=== PATIENT | female | born 1965 | race African-American/Black ===

== ENCOUNTER 2020-10-20 12:27 | Observation (INO) ==
[2020-10-20] MEDS ORDERED: Ondansetron 4 MG/2 ML VIAL IVP PRN (15:55)
[2020-10-20] MEDS ORDERED: Naloxone 0.4 MG/ML INJ IVP PRN (15:55)
[2020-10-20] MEDS ORDERED: *HR* HYDROcodone/Acet 5/325 mg TABLET PO PRN (15:55)
[2020-10-20] MEDS ORDERED: Melatonin 3 MG TABLET PO PRN (15:55)
[2020-10-20] MEDS ORDERED: Acetaminophen 325 MG TABLET PO PRN (15:55)
[2020-10-20] MEDS ORDERED: Perflutren Lipid Microsphere 1.3 ML in 0.9 % Sodium Chloride 8.7 ML IVP PRN (16:00)
[2020-10-20] MEDS ORDERED: Gadolinium Contrast Agent (WT Based) IV PRN (16:00)
[2020-10-20] MEDS ORDERED: Ringers Solution, Lactated 1,000 ML IVC SCH (16:00)
[2020-10-20 16:56] LABS: Chol/HDL Ratio 3.7 (0-4.9)
[2020-10-20 17:23] LABS: Folate 22.1 ng/mL (3.0-16.0)
[2020-10-20] MEDS: Aspirin Enteric Coated 81 MG Tablet PO SCH (17:27)
[2020-10-20 18:21] LABS: Acetaminophen < 10 mcg/mL (10-20); Magnesium 1.8 mg/dL (1.6-2.6); Phosphorous 2.8 mg/dL (2.7-4.5); Salicylate < 2.5 mg/dL (15.0-30.0)
[2020-10-20 19:07] LABS: Follicle Stimulating Hormone 78.08 mIU/mL
[2020-10-20 19:08] LABS: Luteinizing Hormone 46.23 mIU/mL
[2020-10-21 05:36] LABS: Basophils % 0.8 %; Eosinophils # 0.1 K/mcL (0.0-0.6); Hematocrit 38.4 % (35.3-44.9); Hemoglobin 13.5 g/dL (11.5-15.4); Lymphocytes # 2.3 K/mcL (0.6-4.6); Lymphocytes % 58.9 %; Mean Corpuscular HGB Conc 35.2 g/dL (31.6-35.5); Mean Corpuscular Volume 88.1 fL (83.0-100.0); Mean Platelet Volume 9.8 fL (9.4-12.4); Monocytes # 0.3 K/mcL (0.0-1.3); Monocytes % 7.7 %; Neutrophils # 1.2 K/mcL (1.6-8.9); Platelet Count 240 K/mcL (140-400); Red Blood Count 4.36 M/mcL (3.82-4.97); Red Cell Distribution Width 13.3 % (11.5-14.5); Segmented Neutrophils % 30.6 %; White Blood Count 3.9 K/mcL (4.3-11.1)
[2020-10-21 05:56] LABS: INR 1.1; Prothrombin Time 13.2 Seconds (9.4-12.1)
[2020-10-21 06:01] LABS: Alanine Aminotransferase 13 Units/L (7-52); Albumin 3.6 g/dL (3.5-5.7); Albumin/Globulin Ratio 0.9 (1.1-2.2); Alkaline Phosphatase 61 Units/L (34-104); Aspartate Amino Transferase 18 Units/L (13-39); BUN/Creatinine Ratio 25 (6-26); Bilirubin,Total 0.7 mg/dL (0.3-1.0); Blood Urea Nitrogen 21 mg/dL (6-20); Calcium 9.3 mg/dL (8.6-10.3); Carbon Dioxide 25 mEq/L (23-29); Chloride 105 mEq/L (98-107); Glucose 89 mg/dL (70-105); Magnesium 1.8 mg/dL (1.6-2.6); Osmolality,Calculated 286 (280-300); Phosphorous 3.5 mg/dL (2.7-4.5); Potassium 3.8 mEq/L (3.5-5.1); Sodium 137 mEq/L (136-145); Total Protein 7.6 g/dL (6.4-8.9); Troponin I < 0.03 ng/mL (< 0.04); eGFR For African Americans > 60 (> 60); eGFR For Non-African Americans > 60 (> 60)
[2020-10-21 06:18] LABS: Estimated Average Glucose 114 mg/dl; Hemoglobin A1C 5.6 %
[2020-10-21] MEDS: Aspirin Enteric Coated 81 MG Tablet PO SCH (09:38)
[2020-10-21 10:29] VITALS: BP 114/68
[2020-10-25 10:48] LABS: Estradiol 23.5 pg/mL; Estrone 33.1 pg/mL
== END 2020-10-21 15:47 | disposition home or self-care (01) ==
LOC: 3BNU → SUATTDRO 14:40
PROVIDERS: ADMIT Internal Medicine; ATTEND Internal Medicine